=== PATIENT | female | born 1960 | race Hispanic/Latino ===

== ENCOUNTER 2018-10-02 21:49 | Observation (INO) | payer SELFPAY ==
[2018-10-02] MEDS ORDERED: Famotidine/PF 20 mg/2ml Vial ONE (22:24)
[2018-10-03] MEDS ORDERED: Ondansetron PF 4 MG/2 ML Vial IVP PRN (02:43)
[2018-10-03] MEDS ORDERED: Dextrose 50% Abboject 50 ML SYRINGE SLOW IVP PRN (02:48)
[2018-10-03] MEDS ORDERED: HumaLOG 300 UNITS/3 ML VIAL SC PRN (02:48)
[2018-10-03] MEDS ORDERED: Dextrose 5% in Water 1,000 ML IV PRN (02:48)
[2018-10-03 03:45] LABS: #Lymphocytes 1.3 thou/uL (1.20-3.40); %Eosinophils 0.1 % (0.0-10.0); %Lymphocytes 13.9 % (21.0-51.0); %Monocytes 0.5 % (0.0-10.0); %Neutrophils 85.6 % (42.0-75.0); Hemoglobin 13.2 g/dL (12.0-16.0); Mean Corpuscular HGB CONC 33.4 g/dL (32.0-36.0); Mean Corpuscular Hemoglobin 27.9 pg (27.0-31.0); Mean Corpuscular Volume 83.5 fL (78.0-98.0); Mean Platelet Volume 8.3 fL (7.4-10.4); Platelet Count 214 thou/uL (130-400); RBC Distribution Width 13.5 % (11.5-14.5); Red Blood Cell (RBC) Count 4.71 mill/uL (4.20-5.40); White Blood Cell (WBC) Count 9.4 thou/uL (4.8-10.8)
[2018-10-03] MEDS ORDERED: Albuterol Sulfate 2.5 mg/3 ml Neb NEB PRN (04:04)
[2018-10-03] MEDS ORDERED: diphenhydrAMINE 50 MG/ML VIAL IVP PRN (04:05)
[2018-10-03 04:08] LABS: Anion Gap 16 mmol/L (10-20); BUN (Urea Nitrogen) 17 mg/dL (9.8-20.1); Calc. Creatinine Clearance 0 mL/min (70-130); Calcium 9.3 mg/dL (7.8-10.44); Carbon Dioxide 25 mmol/L (22-29); Chloride 101 mmol/L (98-107); Estimated GFR-MDRD 89; Glucose 211 mg/dL (70-105); Potassium 3.5 mmol/L (3.5-5.1); Sodium 138 mmol/L (136-145)
[2018-10-03] MEDS ORDERED: Bacteriostatic Water 30 ML VIAL FS PRN (04:08)
--- NOTE | 2018-10-03 05:33 | HP ---
CHIEF COMPLAINT: Throat and facial swelling. HISTORY OF PRESENT ILLNESS: Ms. Amaya is a pleasant 58-year-old woman who presents due to reaction to ibuprofen that occurred immediately after taking it earlier this afternoon. The patient presented to the emergency department and was seen at approximately 3:00 p.m., 1 hour later from her symptoms started, and had immediate relief with medications given. She had initially presented to the emergency department in [place] and was given an epinephrine injection, diphenhydramine and Solu-Medrol injection. Upon arrival to the emergency department here, she was given Pepcid. The patient states she is feeling significantly better, but continues with slight swelling around her eyes and her upper lip. Her tongue swelling has completely improved as has her throat swelling. The patient reports feeling difficult to breathe, but denies experiencing any wheezing. She recalls having a reaction approximately 3 weeks ago to ibuprofen. She normally was taking 800 mg 3 times a day for arthritis for the last several months and 3 weeks ago had reduced the dose to twice daily. Eventually, she came off it completely and was doing well until she resumed the medication today. She denies any other medications being taken at the time. Her symptoms started today. She also denies any new medications. Denies any allergies to foods and states she was not eating when her symptoms began. The patient denies experiencing any reaction like this in the past. REVIEW OF SYSTEMS: She reports having a good appetite recently. No nausea or vomiting. No abdominal pain or cramping. No fevers, chills, or sweats. No chest pain or palpitations. She did experience some mild shortness of breath due to throat swelling, but this has fully improved. At present, she denies any shortness of breath or wheezing. No abdominal pain or cramping. No urinary symptoms. All other review of systems are negative. PAST MEDICAL HISTORY: 1. Arthritis. 2. Type 2 diabetes. 3. Colitis. 4. Hypertension. 5. Depression. PAST SURGICAL HISTORY: 1. Appendectomy. 2. Cholecystectomy. SOCIAL HISTORY: The patient denies any alcohol use, drug use, or tobacco use. PHYSICAL EXAMINATION: GENERAL: The patient appears well developed, well nourished, and is in no acute distress. VITAL SIGNS: Temperature 98.5, pulse 70, blood pressure 120/72, respirations 15, O2 saturation 96% on room air. HEENT: The patient with notable swelling involving both eyes. Extraocular movements intact. The patient with swelling of upper lip and generalized puffy appearance in her face. Oropharynx is clear. Tongue without any swelling or erythema. NECK: Supple. LUNGS: Clear to auscultation bilaterally without any wheezes, rales, or rhonchi. CARDIAC: Regular rate and rhythm. ABDOMEN: Obese, soft, nontender, nondistended. No guarding or rigidity. EXTREMITIES: No lower leg swelling or edema. NEUROLOGIC: Alert and oriented x3. SKIN: Without any rash or hives. LABORATORY DATA: White blood count 9.8, hemoglobin 12.8, hematocrit 40.3, platelets 218. Sodium 140, potassium 3.6, chloride 101, carbon dioxide 25, BUN 16, creatinine 0.83, GFR 71, glucose 86 and calcium 9.8. IMAGING DATA: None. IMPRESSION AND PLAN: Ms. Lyman is a very pleasant 58-year-old woman with a known history of type 2 diabetes mellitus, hypertension, and arthritis who presents after having an allergic reaction immediately after resuming Extra Strength ibuprofen 800 mg. The patient experienced generalized itching, which occurred after taking the same medicine approximately 3 weeks ago. She had throat swelling and tongue swelling with diffuse facial swelling. The patient was treated in the ER with epinephrine, Solu-Medrol and Benadryl with notable improvement. She was transferred here due to residual swelling involving her face. She was felt to require continued observation. On arrival here, has given Pepcid. At this present time, the patient denies having any difficulty breathing and her symptoms are significantly improved. We will continue to monitor her overnight. We will continue albuterol inhaler 2.5 mg every 4 hours as needed, Benadryl 50 mg IV q.6 hours as needed, Pepcid q.12 hours and Solu-Medrol 60 mg q.6 hours. We will continue to monitor her blood pressure and resume home medications once verified. She is a known diabetic; therefore, we have initiated an insulin sliding scale and will continue to monitor her glucose. However, with regard to her code status, she is full code. Her surrogate decision maker is her daughter, Kiana Eaton. The patient's case was discussed with Dr. Raines, who agrees with plan of care as described above. Job ID: [id number]
[2018-10-03 08:16] VITALS: BMI 39.3
[2018-10-03] MEDS: methylPREDNISolone Sod Succ/PF 125 MG/2 ML VIAL IVP SCH ×4 (08:40→23:38)
[2018-10-03] MEDS: Famotidine/PF 20 mg/2ml Vial SLOW IVP SCH ×2 (08:40→21:36)
[2018-10-03] MEDS ORDERED: Famotidine/PF 20 mg/2ml Vial SLOW IVP SCH (09:00)
[2018-10-03] MEDS: Sodium Chloride 0.9% 1,000 ML IV SCH ×3 (09:01→23:37)
[2018-10-03] MEDS: HumaLOG 300 UNITS/3 ML VIAL SC PRN ×3 (11:55→17:22)
[2018-10-04] MEDS: HumaLOG 300 UNITS/3 ML VIAL SC PRN ×2 (05:47→11:32)
--- NOTE | 2018-10-04 05:52 | PDOC.EVN ---
Event Note - Event Note Event Note: RN called - Patient does not have IV access - Will change IV steroids/Pepcide and Benadryl to PO
[2018-10-04] MEDS ORDERED: diphenhydrAMINE 25 MG CAP PO SCH (06:00)
[2018-10-04] MEDS ORDERED: Carvedilol 6.25 MG TAB PO SCH (08:00)
[2018-10-04] MEDS ORDERED: predniSONE 20 MG TAB PO SCH (08:00)
[2018-10-04] MEDS ORDERED: Hydrochlorothiazide 25 MG TAB PO SCH (09:00)
[2018-10-04] MEDS ORDERED: Famotidine 20 MG TAB PO SCH (09:00)
[2018-10-04] MEDS ORDERED: Amlodipine 5 MG TAB PO SCH (09:00)
[2018-10-04] MEDS ORDERED: [UNRECOGNIZED DRUG - OTHER] PO SCH (09:00)
[2018-10-04] MEDS ORDERED: HCTHIAZID PO SCH (09:00)
[2018-10-04] MEDS ORDERED: AMLODIPIN PO SCH (09:00)
[2018-10-04] MEDS ORDERED: OLMESARTAN PO SCH (09:00)
[2018-10-04 11:29] VITALS: BP 143/70; TEMP 98.4
== END 2018-10-04 13:40 | disposition home or self-care (01) ==
LOC: ERS 21:49 → ERHOLD 23:15 → 3SE 10-03 07:28
PROVIDERS: ADMIT Hospitalist; ATTEND Hospitalist
DX: T78.3XXA Angioneurotic edema, initial encounter (principal); T39.315A Adverse effect of propionic acid derivatives, initial encounter; I10 Essential (primary) hypertension; E11.9 Type 2 diabetes mellitus without complications; F32.9 Major depressive disorder, single episode, unspecified; K52.9 Noninfective gastroenteritis and colitis, unspecified; M19.90 Unspecified osteoarthritis, unspecified site
CPT/HCPCS: 36415; 36416; 80048; 85025; 96361; 96374; 96375; 96376; G0378; J2930; J7512; Q0163; S0028

== ENCOUNTER 2020-02-06 07:26 | Outpatient (CLI) | payer OTHER ==
[2020-02-06 11:53] LABS: #Eosinphils 0.2 10x3/uL (0.0-0.5); #Monocytes 0.6 10x3/uL (0.0-1.1); #Neutrophils 5.6 10x3/uL (1.5-8.4); %Basophils 0.2 % (0.0-2.0); %Eosinophils 2.2 % (0.0-6.0); %Monocytes 6.2 % (0.0-10.0); %Neutrophils 61.1 % (40.0-75.0); Hemoglobin 12.9 g/dL (12.0-16.0); Mean Corpuscular HGB CONC 31.7 G/DL (32.0-36.0); Mean Corpuscular Volume 81.9 fl (80.0-100.0); Mean Platelet Volume 11.3 fl (7.4-10.4); Platelet Count 246 10x3/uL (130-400); RBC Distribution Width 14.1 % (11.5-14.5); Red Blood Cell (RBC) Count 4.97 10x6/uL (3.90-5.20); White Blood Cell (WBC) Count 9.1 10x3/uL (4.5-11.0)
[2020-02-06 13:06] LABS: Anion Gap 19 mmol/L (10-20); BUN (Urea Nitrogen) 11 mg/dL (9.8-20.1); Calc. Creatinine Clearance 0 mL/min (70-130); Calcium 8.8 mg/dL (7.8-10.44); Carbon Dioxide 24 mmol/L (22-29); Chloride 102 mmol/L (98-107); Estimated GFR-MDRD Greater than 90; Glucose 93 mg/dL (70-105); Potassium 4.1 mmol/L (3.5-5.1); Sodium 141 mmol/L (136-145)
[2020-02-06 18:15] LABS: SARS-CoV-2 MS2 Positive; SARS-CoV-2 N Gene Negative; SARS-CoV-2 S Gene Negative; SARS-CoV-2 by NAA Not Detected (NotDetected); SARS-CoV-2 orf1ab Negative
== END 2020-02-06 07:27 | disposition home or self-care (01) ==
LOC: LABBT 07:26
PROVIDERS: ATTEND Specialist
DX: Z01.818 Encounter for other preprocedural examination (principal); C50.411 Malignant neoplasm of upper-outer quadrant of right female breast; Z20.828 Contact with and (suspected) exposure to other viral communicable diseases
CPT/HCPCS: 80048; 85025; 87635; 93005; 93010; U0003

== ENCOUNTER 2020-02-11 07:30 | Day surgery (SDC) | payer SELFPAY ==
[2020-02-10 11:57] VITALS: BMI 37.7
[2020-02-11] MEDS ORDERED: Bupivacaine/Epinephrine 0.25% 30 ML VIAL ONE (10:19)
[2020-02-11] MEDS ORDERED: Isosulfan Blue 50 MG/5 ML VIAL ONE (10:19)
[2020-02-11] MEDS ORDERED: Fentanyl 250 MCG/5 ML VIAL ONE (10:25)
--- NOTE | 2020-02-11 11:23 | NM ---
NUCLEAR MEDICINE LYMPHOSCINTIGRAPHY RIGHT BREAST: Date: 02/11/2020 HISTORY: 60-year-old female with malignant neoplasm of upper outer quadrant of right female breast. TECHNIQUE: Injection performed by nuclear engineering technician. After cleansing of skin with alcohol swabs, 419 uCi Tc99m filtered sulfur colloid injected intraderma lly in four quadrants in right periareolar distribution using tuberculin syringes. Anterior and lateral immediate scintigraphy of the chest. FINDINGS: Strong uptake is visualized in sentinel right axillary lymph node. Slightly medial to that, and sligh tly inferior to that, two additional axillary lymph nodes demonstrate uptake. IMPRESSION: Successful right breast lymphoscintigraphy, with demonstration of sentinel lymph node and other axill desire lymph nodes. POS: [facility]
[2020-02-11] MEDS ORDERED: PHENYLEPHRINE-NS 100 MCG/ML 10 ML SYRINGE ONE (13:00)
[2020-02-11] MEDS ORDERED: Dexamethasone 20 MG/5 ML VIAL ONE (13:00)
[2020-02-11] MEDS ORDERED: PROPOFOL 200 MG/20 ML VIAL ONE (13:00)
[2020-02-11] MEDS ORDERED: Lidocaine 1% PF 5 ML VIAL ONE (13:00)
[2020-02-11] MEDS ORDERED: Rocuronium Bromide 10 MG/ML (10ML VIAL) ONE (13:00)
[2020-02-11] MEDS ORDERED: Ondansetron PF 4 MG/2 ML Vial ONE (13:00)
[2020-02-11] MEDS ORDERED: Glycopyrrolate 0.2 MG/ML 5 ML SYRINGE ONE (13:00)
[2020-02-11] MEDS ORDERED: EPHEDRINE 25 MG/5 ML SYRINGE ONE (13:00)
[2020-02-11] MEDS ORDERED: Fentanyl 100 MCG/2 ML VIAL ONE (13:13)
[2020-02-11] MEDS ORDERED: Morphine 4 MG/ML VIAL ONE (13:30)
[2020-02-11] MEDS ORDERED: traMADol HCl 50 MG TAB ONE (14:22)
--- NOTE | 2020-02-12 13:59 | OP ---
DATE OF PROCEDURE: 02/11/2020 PREOPERATIVE DIAGNOSIS: Right breast cancer. POSTOPERATIVE DIAGNOSIS: Right breast cancer. PROCEDURE PERFORMED: Right simple mastectomy with sentinel lymph node biopsy. ANESTHESIA: General endotracheal. INDICATIONS: The patient is an obese 60-year-old female. She presents with small lateral right breast cancer. After discussion of options, we decided to proceed with mastectomy and sentinel lymph node biopsy. Preoperative lymphoscintigraphy showed good radio uptake in the axilla to identify sentinel lymph node. DESCRIPTION OF PROCEDURE: Informed consent was obtained. The patient was taken to the operating room, where general endotracheal anesthesia was obtained with the patient in supine position. Breast was infiltrated with 3 mL of Lymphazurin in the subdermal periareolar tissue and massaged for 5 minutes. The right breast and axilla were then prepped with ChloraPrep and draped in sterile fashion. Local anesthetic was infiltrated to affect a suprapectoral block involving the axilla as well using 30 mL of 0.25% Marcaine with epinephrine. A transverse elliptical incision was created to encompass the nipple-areolar complex and extending laterally into the axilla. Due to the large volume of axillary fatty tissue, the incision was carried further lateral than typical. Dissection was carried through the skin and subcutaneous tissue using the plasma blade. All dissection was performed using plasma blade. Flaps were raised superiorly and at the lateral aspect. The tissue was interrogated with the Neoprobe to identify the areas of radioactivity. I was able to identify 2 dominant sentinel lymph nodes that were radio intense and both of these were stained with blue dye. These were each dissected circumferentially and investing lymphatics divided between clamps and 3-0 silk ties. The nodes were submitted to Pathology for intraoperative frozen section. The frozen sections were negative on both lymph nodes. The flaps were then raised superiorly, inferiorly, and medially down to the chest wall. The breast was then swept off the chest wall in a medial to lateral fashion. Meticulous hemostasis was maintained during the dissection. At the lateral aspect of the pectoralis, the breast tissue was elevated off the underlying axillary tissue and divided. It was tagged for orientation and submitted to Pathology. The skin edges were then carefully tailored to minimize redundant tissue and a wide strip of inferior tissue was excised to optimize skin closure. A #19 round fluted drain was brought out laterally and inferiorly and secured with 3-0 nylon. The wound was closed in layers with 3-0 Vicryl and skin naun. Xeroform gauze was placed followed by fluffed gauze and a Pamela wrap. There were no complications. Blood loss was negligible. The patient tolerated the procedure well and was taken to recovery in stable condition. She will return to my office in 1 week for wrap removal and drain evaluation. Job ID: [id number]
== END 2020-02-11 15:00 | disposition home or self-care (01) ==
LOC: SDC 07:30
PROVIDERS: ATTEND Specialist
PROC: 07B50ZX Excision of Right Axillary Lymphatic, Open Approach, Diagnostic (ICD-10-PCS; principal; 2020-02-11)
PROC: 0HTT0ZZ Resection of Right Breast, Open Approach (ICD-10-PCS; 2020-02-11)
DX: C50.411 Malignant neoplasm of upper-outer quadrant of right female breast (principal); E11.9 Type 2 diabetes mellitus without complications; I10 Essential (primary) hypertension; M19.90 Unspecified osteoarthritis, unspecified site; Z17.0 Estrogen receptor positive status [ER+]; Z79.84 Long term (current) use of oral hypoglycemic drugs; Z79.899 Other long term (current) drug therapy; Z88.6 Allergy status to analgesic agent
CPT/HCPCS: 78195; 88307; 88309; 88333; 88334; 88342; A9541; J0690; J1100; J2270; J2405; J2704; J3010; Q9968

== ENCOUNTER 2022-02-21 07:55 | Outpatient (CLI) | payer OTHER | END 2022-02-21 07:56 | disposition home or self-care (01) | LOC: BICULT 07:55 | PROVIDERS: ATTEND Specialist | DX: N63.21 Unspecified lump in the left breast, upper outer quadrant (principal) ==

== ENCOUNTER 2022-08-18 10:14 | Outpatient (CLI) | payer OTHER | END 2022-08-18 10:15 | disposition home or self-care (01) | LOC: BICMAMMO 10:14 | PROVIDERS: ATTEND Specialist | DX: R92.8 Other abnormal and inconclusive findings on diagnostic imaging of breast (principal) | CPT/HCPCS: G0279 ==

== ENCOUNTER 2023-06-06 09:43 | Outpatient (CLI) | payer OTHER | END 2023-06-06 09:44 | disposition home or self-care (01) | LOC: BICMAMMO 09:43 | PROVIDERS: ATTEND Specialist | DX: Z08 Encounter for follow-up examination after completed treatment for malignant neoplasm (principal); Z85.3 Personal history of malignant neoplasm of breast | CPT/HCPCS: G0279 ==